=== PATIENT | female | born 1975 | race Hispanic/Latino ===

== ENCOUNTER 2021-04-05 17:17 | Emergency (ER) | payer OTHER ==
[~2021-04-05] VITALS: Ht 154.9 cm; Wt 92.6 kg
[2021-04-05] MEDS ORDERED: METFORMIN HCL500 MG PO (17:49)
[2021-04-05] MEDS ORDERED: PIOGLITAZONE HC45 MG PO (17:49)
[2021-04-05] MEDS ORDERED: LISINOPRIL2.5 MG PO (17:49)
[2021-04-05] MEDS ORDERED: ATORVASTATIN CA20 MG PO (17:49)
[2021-04-05] MEDS ORDERED: LIDOCAINE 1% W/EPINEPHRINE 20 ML VIAL INJ ONE (18:00)
[2021-04-05] MEDS ORDERED: TETANUS/DIPHTHERIA TOX ADULT 0.5 ML SYR IM ONE (18:00)
[2021-04-05] MEDS ORDERED: BACITRACIN ZINC 0.9GM TP ONE ×2 (18:00→18:09)
[2021-04-05] MEDS ORDERED: CLINDAMYCIN HC150 MG PO (18:00)
[2021-04-05] MEDS ORDERED: LIDOCAINE 1% W/EPINEPHRINE 20 ML VIAL ONE (18:08)
[2021-04-05] MEDS ORDERED: TETANUS/DIPHTHERIA TOX ADULT 0.5 ML SYR ONE (18:11)
== END 2021-04-05 18:33 | disposition home or self-care (01) ==
LOC: FSED 17:44
DX: L02.214 Cutaneous abscess of groin (principal); I10 Essential (primary) hypertension; E11.9 Type 2 diabetes mellitus without complications; E78.5 Hyperlipidemia, unspecified
CPT/HCPCS: 10060; 90471; 90714; 96372; 99283

== ENCOUNTER 2021-09-17 23:27 | Emergency (ER) | payer OTHER ==
[~2021-09-17] VITALS: Ht 154.9 cm; Wt 92.5 kg
[~2021-09-17 23:27] MED LIST: ATORVASTATIN CA20 MG PO; CLINDAMYCIN HC150 MG PO; LISINOPRIL2.5 MG PO; METFORMIN HCL500 MG PO; PIOGLITAZONE HC45 MG PO
[2021-09-17] MEDS ORDERED: KETOROLAC TROMETHAMINE 30 MG/ML VIAL IV STA (23:41)
[2021-09-18 01:14] LABS: BASOPHILS % 0.4 % (0.0-1.0); EOSINOPHILS # (AUTO) 0.3 (0.0-0.4); EOSINOPHILS % 2.6 % (0.0-6.0); HEMATOCRIT 34.5 % (34.2-44.1); HEMOGLOBIN 9.9 g/dL (12.0-16.0); LYMPHOCYTES % 30.3 % (18.0-39.1); MEAN CORPUSCULAR HEMOGLOBIN 22.8 pg (28-32); MEAN CORPUSCULAR HGB CONC 28.7 g/dL (31-35); MEAN CORPUSCULAR VOLUME 79.3 fL (81-99); MONOCYTES # (AUTO) 0.7 (0.2-0.8); MONOCYTES % 6.9 % (4.4-11.3); NEUTROPHILS # (AUTO) 5.8 (2.1-6.9); NEUTROPHILS % 59.2 % (38.7-80.0); PLATELET COUNT 408 x10e3/uL (140-360); RED BLOOD COUNT 4.35 x10e6/uL (3.6-5.1)
[2021-09-18 01:34] LABS: ALANINE AMINOTRANSFERASE 14 IU/L (0-55); ALBUMIN 3.4 g/dL (3.5-5.0); ALBUMIN/GLOBULIN RATIO 0.7 (0.8-2.0); ALKALINE PHOSPHATASE 78 IU/L (40-150); ANION GAP 15.5 mmol/L (8-16); BLOOD UREA NITROGEN 11 mg/dL (7-26); BUN/CREATININE RATIO 14 (6-25); CALCIUM 8.9 mg/dL (8.4-10.2); CARBON DIOXIDE 26 mmol/L (22-29); CHLORIDE 101 mmol/L (98-107); CREATINE KINASE 29 IU/L (29-168); CREATININE, SERUM 0.76 mg/dL (0.57-1.11); GLUCOSE 103 mg/dL (74-118); POTASSIUM 3.5 mmol/L (3.5-5.1); SODIUM 139 mmol/L (136-145)
== END 2021-09-18 02:45 | disposition home or self-care (01) ==
LOC: ER 23:35
DX: R07.89 Other chest pain (principal); I10 Essential (primary) hypertension; E11.9 Type 2 diabetes mellitus without complications; E78.5 Hyperlipidemia, unspecified
CPT/HCPCS: 36415; 71045; 80053; 82550; 82553; 84484; 85025; 85379; 93005; 99284; J1885

== ENCOUNTER 2023-01-24 14:25 | Emergency (ER) | payer OTHER ==
[~2023-01-24] VITALS: Ht 154.9 cm; Wt 91.2 kg
[~2023-01-24 14:25] MED LIST changes: +IBUPROFEN600 MG PO; +MUCINEX DM ER1 EAC1 PO
[2023-01-24] MEDS ORDERED: KETOROLAC TROMETHAMINE 30 MG/ML VIAL IV STA (15:00)
[2023-01-24 15:29] LABS: BASOPHILS # (AUTO) 0.1 (0.0-0.1); BASOPHILS % 0.7 % (0.0-1.0); EOSINOPHILS # (AUTO) 0.2 (0.0-0.4); EOSINOPHILS % 3.2 % (0.0-6.0); HEMATOCRIT 29.1 % (34.2-44.1); HEMOGLOBIN 8.3 g/dL (12.0-16.0); LYMPHOCYTES # (AUTO) 2.1 (1.0-3.2); LYMPHOCYTES % 28.1 % (18.0-39.1); MEAN CORPUSCULAR HEMOGLOBIN 20.3 pg (28-32); MEAN CORPUSCULAR HGB CONC 28.5 g/dL (31-35); MEAN CORPUSCULAR VOLUME 71.3 fL (81-99); MONOCYTES # (AUTO) 0.5 (0.2-0.8); MONOCYTES % 6.8 % (4.4-11.3); NEUTROPHILS # (AUTO) 4.6 (2.1-6.9); NEUTROPHILS % 60.3 % (38.7-80.0); PLATELET COUNT 444 x10e3/uL (140-360); RED BLOOD COUNT 4.08 x10e6/uL (3.6-5.1); RED CELL DISTRIBUTION WIDTH 15.2 % (11.7-14.4); WHITE BLOOD COUNT 7.61 x10e3/uL (4.8-10.8)
[2023-01-24 15:44] LABS: ALANINE AMINOTRANSFERASE 51 IU/L (0-55); ALBUMIN 3.5 g/dL (3.5-5.0); ALBUMIN/GLOBULIN RATIO 0.8 (0.8-2.0); ALKALINE PHOSPHATASE 92 IU/L (40-150); ANION GAP 13.7 mmol/L (8-16); BILIRUBIN,TOTAL 1.3 mg/dL (0.2-1.2); BLOOD UREA NITROGEN 9 mg/dL (7-26); BUN/CREATININE RATIO 12 (6-25); CALCIUM 8.9 mg/dL (8.4-10.2); CARBON DIOXIDE 22 mmol/L (22-29); CHLORIDE 102 mmol/L (98-107); CREATINE KINASE 37 IU/L (29-168); CREATININE, SERUM 0.77 mg/dL (0.57-1.11); EST GLOMERULAR FILTRATION RATE 96 ML/MIN (>=60); GLUCOSE 189 mg/dL (74-118); POTASSIUM 3.7 mmol/L (3.5-5.1); SODIUM 134 mmol/L (136-145); TOTAL PROTEIN 7.8 g/dL (6.5-8.1)
[2023-01-24 15:52] LABS: TROPONIN I < 0.001 ng/mL (0-0.300)
[2023-01-24] MEDS ORDERED: ULTRAM 50MG50 MG PO (16:18)
[2023-01-24 16:55] VITALS: BP 121/65; PULSE 70; RESP 15; O2SAT 100
== END 2023-01-24 16:53 | disposition home or self-care (01) ==
LOC: ER 14:26
DX: R07.89 Other chest pain (principal); E11.65 Type 2 diabetes mellitus with hyperglycemia; I10 Essential (primary) hypertension; E78.5 Hyperlipidemia, unspecified
CPT/HCPCS: 36415; 71046; 80053; 82550; 83690; 83880; 84484; 85025; 85379; 93005; 99283; J1885